=== PATIENT | female | born 1965 | race Caucasian/White ===

== ENCOUNTER → 2019-04-21 10:20 | Outpatient (CLI) | payer OTHER ==
--- NOTE | 2019-04-23 09:14 | EC ---
PATIENT:OLEGARIO ALLEN DATE OF SERVICE: 04/21/19 SEX: F MEDICAL RECORD: [id number] DATE OF : [birth year] LOCATION:D[facility] AGE OF PATIENT: 54 ADMISSION DATE: 04/21/19 REFERRING PHYSICIAN: INTERPRETING PHYSICIAN: ALEXEI ORTIZ MD ECHOCARDIOGRAM REPORT ECHO CHARGES 4 ECHO COMPLETE Date: 04/21/19 CLINICAL DIAGNOSIS: HTN/PALPITATIONS/DYSPNEA HX CAD ECHOCARDIOGRAPHIC MEASUREMENTS (adult normal given) AC root (d.<3.7cm) 2.4 cm LV Septum d (<1.2 cm> 1.0 cm Valve Excursion 1.4 cm LV Septum (systole) 1.3 cm Left Atria (s.<4.0cm> 3.6 cm LVPW d(<1.2cm) 1.3 cm RV (d.<2.3cm) 4.3 cm LVPW (sytole) 1.5 cm LV diastole(<5.6CM) 4.7 cm MV E-F(>70mm/sec) cm LV systole 2.9 cm LVOT Diameter 1.8 cm MV exc.(>10mm) 1.4 cm Est.ejection fraction (50-75%) % DOPPLER: LVIT cm/sec A 78.0 cm/sec E 64.0 cm/sec LA cm/sec RVSP 21 mmHg LVOT 135 cm/sec AOP1/2T m/s Asc. Ao 142 cm/sec RVOT cm/sec RA cm/sec PA cm/sec AV Gradient Peak 8.11 mmHg AV Mean 4.52 mmHg AV Area 3.1 cm MV Gradient Peak 3.62 mmHg MV Mean 1.52 mmHg MV Area cm COMMENTS: Dryer Feeder: Lynn REVELES Construction Quality Control Manager: 1 Dr. Ortiz TAPE# PACS Pericardial Effusion N DATE OF SERVICE: 04/21/2019 PROCEDURE: Echocardiogram. FINDINGS: 1. Left ventricular chamber size is within normal limits. Left ventricular systolic function is normal. Overall ejection fraction estimated at 60% to 65%. 2. Left atrium, right atrium, and right ventricular chamber sizes are within normal limits. 3. Valvular structures have normal structure and motion. ECHOCARDIOGRAM REPORT [id number] OLEGARIO ALLEN 4. Doppler interrogation reveals only trace tricuspid regurgitation, no other valvular insufficiency or stenosis. Pulmonary systolic pressure is estimated at 21 mmHg. 5. No evidence of pericardial effusion or left ventricular thrombus. TRANSINT:[id number] Voice Confirmation ID: [id number] DOCUMENT ID: [id number] ALEXEI ORTIZ MD at 0914 CC: [id number] DICTATION DATE: 04/21/19 1548 MEDICAL ASSISTANT SUPERVISOR: 04/22/19 0032 DEP CLI 04/21/19 [place] [id number] [place] [id number]
--- NOTE | 2019-04-24 12:08 | ST ---
PATIENT:OELGARIO ALLEN MEDICAL RECORD: [id number] SEX: F LOCATION:[facility] ORDER #: ADMISSION DATE: 04/21/19 AGE OF PATIENT: 54 REFERRING PHYSICIAN: INTERPRETING PHYSICIAN: ALEXEI MIRAMONTES MD DATE OF SERVICE: 04/21/2019 PROCEDURE: Nuclear stress test. INDICATION: Angina and coronary artery disease, shortness of breath, hypertension. TECHNIQUE: She was exercised on standard Lexiscan protocol with 33 mCi of sestamibi injected at peak stress, 11 mCi used previously for rest images. FINDINGS: Gated SPECT reveals preserved ejection fraction at 68% with good wall motion and thickening and brightening throughout all segments. SPECT imaging Cardiolite was used as myocardial fusion agent. There is homogeneous uptake throughout all segments at rest and stress with no evidence of inducible ischemia or previous infarction. OVERALL IMPRESSION: 1. This is a normal nuclear stress test with no evidence of inducible ischemia or previous infarction. 2. Gated SPECT reveals a preserved ejection fraction at 68%. In this patient with ongoing symptomatology, the current scan does not suggest the presence of hemodynamically significant coronary artery disease. Evaluate noncardiac etiology of chest pain. TRANSINT:[id number] Voice Confirmation ID: [id number] DOCUMENT ID: [id number] ALEXEI MIRAMONTES MD at 1208 CC: GENI VÁSQUEZ MD [id number] DICTATION DATE: 04/23/19 1321 CERTIFIED ART THERAPIST: 04/24/19 0728 DEP CLI 04/21/19 [place] [id number] [place] [id number]
== END | disposition home or self-care (01) ==
LOC: D.HCCECHO 10:20 → D.HCCARDIO 11:00
PROVIDERS: ATTEND Internal Medicine Interventional Cardiology
DX: I10 Essential (primary) hypertension (principal)